=== PATIENT | male | born 1990 | race Caucasian/White ===

== ENCOUNTER 2017-10-01 23:47 | Emergency (ER) | payer OTHER ==
[~2017-10-01] VITALS: Ht 185.4 cm; Wt 81.6 kg
[2017-10-02] MEDS ORDERED: ATARAX25 MG ORAL (00:10)
[2017-10-02] MEDS ORDERED: PAXIL CR25 MG ORAL (00:10)
[2017-10-02 00:11] VITALS: BP 152/71
[2017-10-02 00:24] VITALS: BP 152/71
--- NOTE | 2017-10-02 01:19 | Emergency Room Report ---
History of Present Illness General Chief Complaint: Medication Refill Source: Patient Present Illness HPI 27-year-old male here for medication refill, states that he ran out of his Paxil and has hydroxyzine for anxiety. No SI or HI. No other complaints Allergies: Coded Allergies: ACETAMINOPHEN (Verified Allergy, Unknown, 10/01/17) HYDROCODONE (Verified Allergy, Unknown, 10/01/17) PENICILLINS (Verified Allergy, Unknown, 10/01/17) Patient History Past Medical History: see triage record Past Surgical History: none Pertinent Family History: none Reviewed Nursing Documentation: PMH: Agreed; PSxH: Agreed Nursing Documentation-PMH History Of Psychiatric Problem: Yes - DEPRESSION,ANXIETY Review of Systems All Other Systems: negative except mentioned in HPI Physical Exam Vital Signs Date Time Temp Pulse Resp B/P (MAP) Pulse Ox O2 Delivery O2 Flow Rate FiO2 10/01/17 23:56 98.1 118 16 152/71 96 Room Air 98.1 Sp02 EP Interpretation: reviewed, normal General Appearance: normal inspection, well appearing, no apparent distress, alert, GCS 15, non-toxic Head: normocephalic, atraumatic Eyes: bilateral eye normal inspection, bilateral eye PERRL, bilateral eye EOMI ENT: normal ENT inspection, normal pharynx, normal voice, moist mucus membranes Neck: normal inspection, full range of motion, supple Respiratory: normal inspection, lungs clear, normal breath sounds, no respiratory distress, no retraction, no wheezing, speaking full sentences, chest symmetrical Cardiovascular #1: normal inspection, regular rate, rhythm, no edema, normal capillary refill Cardiovascular #2: 2+ radial (R), 2+ radial (L) Gastrointestinal: normal inspection, non tender, soft, non-distended, no guarding Genitourinary: no CVA tenderness Musculoskeletal: normal inspection, back normal, normal range of motion, non- tender Neurologic: normal inspection, alert, oriented x3, responsive, motor strength/ tone normal, sensory intact, normal gait, speech normal Psychiatric: normal inspection, judgement/insight normal, memory normal Skin: normal inspection, normal color, no rash, warm/dry, well hydrated, normal turgor Medical Decision Making Diagnostic Impression: Primary Impression: Encounter for medication refill ER Course 27-year-old male here for medication refill Paxil Hydroxyzine DDX: Medication refill Plan: None ER course: Patient has remained stable during ED stay. Disposition: Patient is to be discharged to home. Please note that this Emergency Department Report was dictated using [employer] technology software, occasionally this can lead to erroneous entry secondary to interpretation by the dictation equipment Last Vital Signs Date Time Temp Pulse Resp B/P (MAP) Pulse Ox O2 Delivery O2 Flow Rate FiO2 10/02/17 00:24 98.1 116 16 152/71 96 Room Air 98.1 Disposition: HOME, SELF-CARE Condition: Improved Scripts Paroxetine Hcl (PAXIL CR) 25 Mg Tab.er.24h 25 MG ORAL QHS, #7 TAB 0 Refills Prov: Mitzi Agee M.D. 10/02/17 Hydroxyzine HCl (Hydroxyzine HCl) 25 Mg Tablet 50 MG ORAL BID, #30 TAB Prov: Mitzi Agee M.D. 10/02/17 Referrals: [facility],REFERRING (PCP) Patient Instructions: Medicine Refill at the Emergency Department Mitzi Agee M.D. Oct 02, 2017 01:19
== END 2017-10-02 00:37 | disposition home or self-care (01) ==
LOC: EMR 10-02 00:05
DX: F41.9 Anxiety disorder, unspecified (principal); F32.9 Major depressive disorder, single episode, unspecified; Z76.0 Encounter for issue of repeat prescription; Z88.0 Allergy status to penicillin; Z88.6 Allergy status to analgesic agent
CPT/HCPCS: 99283

== ENCOUNTER 2018-08-26 15:17 | Emergency (ER) | payer MEDICAID, OTHER ==
[~2018-08-26] VITALS: Ht 180.3 cm; Wt 81.6 kg
[~2018-08-26 15:17] MED LIST: ATARAX25 MG ORAL; PAXIL CR25 MG ORAL
--- NOTE | 2018-08-26 15:34 | Emergency Room Report ---
History of Present Illness General Chief Complaint: Behavioral Complaint Source: Patient Present Illness HPI 28-year-old male patient presents the ER placed on 5150 hold by police for danger to others. Police report that he was trying to be seen by physicians at [facility] earlier today when he became violent towards the security staff, states they were called by police and they were taking him to the police station for incarceration however there was no neck evaluated here so they were told to bring him to the nearest hospital. Patient currently denies any suicidal or homicidal ideation. States that he has a history of bipolar disease , states that he is taking Abilify. States that he is also taking prescribed methamphetamines, states that he is taking Adderall. Denies acute complaints. Denies fever, chest pain, shortness of breath, abdominal pain. Reports that he is able to read others thoughts and minds. Denies hearing voices. Denies thoughts of hurting herself. Denies other aggravating or relieving factors. Allergies: Coded Allergies: ACETAMINOPHEN (Verified Allergy, Unknown, 10/01/17) HYDROCODONE (Verified Allergy, Unknown, 10/01/17) PENICILLINS (Verified Allergy, Unknown, 10/01/17) Patient History Past Medical History: see triage record Reviewed Nursing Documentation: PMH: Agreed; PSxH: Agreed Nursing Documentation-PMH Past Medical History: No Stated History Review of Systems All Other Systems: negative except mentioned in HPI Physical Exam Vital Signs Date Time Temp Pulse Resp B/P (MAP) Pulse Ox O2 Delivery O2 Flow Rate FiO2 08/26/18 15:23 99.7 115 18 149/86 95 Room Air Sp02 EP Interpretation: reviewed, normal General Appearance: well appearing, no apparent distress, alert, GCS 15, non- toxic Head: normocephalic, atraumatic Eyes: bilateral eye normal inspection, bilateral eye PERRL ENT: hearing grossly normal, normal pharynx, no angioedema, normal voice, uvula midline, moist mucus membranes Neck: full range of motion, no meningismus Respiratory: lungs clear, normal breath sounds, no rhonchi, no respiratory distress, no accessory muscle use, no wheezing, speaking full sentences Cardiovascular #1: regular rate, rhythm, no edema Gastrointestinal: non tender, soft, no mass, non-distended, no guarding, no rebound Musculoskeletal: back normal, digits/nails normal, gait/station normal, normal range of motion, non-tender Neurologic: alert, oriented x3, responsive, motor strength/tone normal, sensory intact Psychiatric: mood/affect normal, no suicidal/homicidal ideation Skin: no rash Medical Decision Making PA Attestation Dr. Martinez is my supervising Physician whom patient management has been discussed with. Diagnostic Impression: Primary Impression: Behavioral disorder ER Course Pt. presents to the ED c/o reading people's minds, history of bipolar disease, on 5150 hold for danger to others. Ddx considered but are not limited to anxiety, depression, drug use, alcohol use , behavioral disorder. Vital signs: are WNL, pt. is afebrile Ordered labs, urine drug screen, serum alcohol. ER COURSE: CBC and CMP unremarkable, mild elevation WBC likely due to agitation or amphetamine use, patient afebrile, low suspicion for infection. No elevation in LFTs or electrolytes. Urine drug screen positive for amphetamines and marijuana, remainder of drug screen negative. Provided with medication in the ER, patient appearing agitated. Believe patient requires chemical sedation at this time. Patient medically cleared. Patient resting comfortably no acute distress, nontoxic appearing. Patient be transferred to mental health facility. Patient signed out to Dr. Saucedo. - Please note that this Emergency Department Report was dictated using [employer] technology software, occasionally this can lead to erroneous entry secondary to interpretation by the dictation equipment. [facility] Test 08/26/18 15:53 08/26/18 18:25 White Blood Count 12.1 K/UL (4.8-10.8) Red Blood Count 4.33 M/UL (4.70-6.10) Hemoglobin 12.9 G/DL (14.2-18.0) Hematocrit 39.0 % (42.0-52.0) Mean Corpuscular Volume 90 FL (80-99) Mean Corpuscular Hemoglobin 29.9 PG (27.0-31.0) Mean Corpuscular Hemoglobin Concent 33.2 G/DL (32.0-36.0) Red Cell Distribution Width 11.3 % (11.6-14.8) Platelet Count 295 K/UL (150-450) Mean Platelet Volume 5.2 FL (6.5-10.1) Neutrophils (%) (Auto) 70.9 % (45.0-75.0) Lymphocytes (%) (Auto) 19.5 % (20.0-45.0) Monocytes (%) (Auto) 8.4 % (1.0-10.0) Eosinophils (%) (Auto) 0.2 % (0.0-3.0) Basophils (%) (Auto) 0.9 % (0.0-2.0) Sodium Level 141 MMOL/L (136-145) Potassium Level 3.8 MMOL/L (3.5-5.1) Chloride Level 105 MMOL/L (98-107) Carbon Dioxide Level 27 MMOL/L (21-32) Anion Gap 9 mmol/L (5-15) Blood Urea Nitrogen 16 mg/dL (7-18) Creatinine 1.4 MG/DL (0.55-1.30) Estimat Glomerular Filtration Rate > 60 mL/min (>60) Glucose Level 89 MG/DL (74-106) Calcium Level 9.6 MG/DL (8.5-10.1) Total Bilirubin 0.6 MG/DL (0.2-1.0) Aspartate Amino Transf (AST/SGOT) 19 U/L (15-37) Alanine Aminotransferase (ALT/SGPT) 24 U/L (12-78) Alkaline Phosphatase 31 U/L (46-116) Total Protein 7.6 G/DL (6.4-8.2) Albumin 4.2 G/DL (3.4-5.0) Globulin 3.4 g/dL Albumin/Globulin Ratio 1.2 (1.0-2.7) Salicylates Level 1.6 ug/mL (2.8-20) Acetaminophen Level < 2 MCG/ML (10-30) Serum Alcohol < 3 mg/dL Urine Opiates Screen Negative (NEGATIVE) Urine Barbiturates Screen Negative (NEGATIVE) Phencyclidine (PCP) Screen Negative (NEGATIVE) Urine Amphetamines Screen Positive (NEGATIVE) Urine Benzodiazepines Screen Negative (NEGATIVE) Urine Cocaine Screen Negative (NEGATIVE) Urine Marijuana (THC) Screen Positive (NEGATIVE) Last Vital Signs Date Time Temp Pulse Resp B/P (MAP) Pulse Ox O2 Delivery O2 Flow Rate FiO2 08/26/18 15:23 99.7 115 18 149/86 95 Room Air Disposition: XFER TO PSYCH HOSP/UNIT Condition: Serious Rico Suero Aug 26, 2018 15:34
--- NOTE | 2018-08-26 15:55 | NUR ---
ED Nurse Note: Patients belongings placed in lockers 1 and 2
[2018-08-26 16:08] VITALS: BP 149/86
--- NOTE | 2018-08-26 16:12 | NUR ---
ED Nurse Note:pt. was BIBA from the street for screaming and inapropriate behaivior and placed on 51/50 hold by [employer] for psych evaluation, seen by ER PA, blood sent to labs, IV fluids started
[2018-08-26 16:19] LABS: BASOPHILS % (AUTO) 0.9 % (0.0-2.0); EOSINOPHILS % (AUTO) 0.2 % (0.0-3.0); HEMOGLOBIN 12.9 G/DL (14.2-18.0); LYMPHOCYTES % (AUTO) 19.5 % (20.0-45.0); MEAN CORPUSCULAR VOLUME 90 FL (80-99); MONOCYTES % (AUTO) 8.4 % (1.0-10.0); NEUTROPHILS % (AUTO) 70.9 % (45.0-75.0); PLATELET COUNT 295 K/UL (150-450); RED BLOOD COUNT 4.33 M/UL (4.70-6.10); RED CELL DISTRIBUTION WIDTH 11.3 % (11.6-14.8); WHITE BLOOD COUNT 12.1 K/UL (4.8-10.8)
[2018-08-26 16:38] LABS: ANION GAP 9 mmol/L (5-15); BLOOD UREA NITROGEN 16 mg/dL (7-18); CALCIUM 9.6 MG/DL (8.5-10.1); CARBON DIOXIDE 27 MMOL/L (21-32); CHLORIDE 105 MMOL/L (98-107); CREATININE 1.4 MG/DL (0.55-1.30); POTASSIUM 3.8 MMOL/L (3.5-5.1); SODIUM 141 MMOL/L (136-145)
[2018-08-26 16:42] LABS: ALANINE AMINOTRANSFERASE 24 U/L (12-78); ALBUMIN 4.2 G/DL (3.4-5.0); ALBUMIN/GLOBULIN RATIO 1.2 (1.0-2.7); ALKALINE PHOSPHATASE 31 U/L (46-116); ASPARTATE AMINO TRANSFERASE 19 U/L (15-37); BILIRUBIN,TOTAL 0.6 MG/DL (0.2-1.0)
[2018-08-26] MEDS ORDERED: DiphenhydrAMINE 50mg/ml Inj IM ONE (18:15)
[2018-08-26] MEDS ORDERED: Haloperidol 5mg/ml Inj IM ONE (18:15)
[2018-08-26] MEDS ORDERED: LORazepam Inj 2mg/ml 1ml IM ONE (18:15)
--- NOTE | 2018-08-26 18:30 | NUR ---
ED Nurse Note:pt. got agitated- was given IM ativan with haldol, sitter is at bed side
--- NOTE | 2018-08-26 19:32 | NUR ---
ED Nurse Note:pt. is sleeping no signs of distress noted
--- NOTE | 2018-08-26 19:54 | NUR ---
ED Nurse Note: Sitter is at bedside.
[2018-08-26 19:55] VITALS: BP 136/79
--- NOTE | 2018-08-26 21:49 | NUR ---
ED Nurse Note: Patient is sleeping on gurney. Breathing is even and unlabored. No s/s of acute distress noted at this time. Sitter is at bedside.
[2018-08-26 23:44] VITALS: BP 131/77
--- NOTE | 2018-08-27 02:16 | NUR ---
ED Nurse Note: Patient is sleeping on gurney. Breathing is even and unlabored. No s/s of acute distress noted at this time. Sitter is at bedside.
[2018-08-27 03:51] VITALS: BP 136/82
--- NOTE | 2018-08-27 03:51 | NUR ---
ED Nurse Note: Patient is sleeping on gurney. Breathing is even and unlabored. No s/s of acute distress noted at this time. Sitter is at bedside.
[2018-08-27 07:13] VITALS: BP 115/68
--- NOTE | 2018-08-27 07:13 | NUR ---
ED Nurse Note: REPORT RECEIVED FROM BUSTER AYALA. PT SLEEPING PEACEFULLY IN BED IN NAD. SITTER AT BEDSIDE. VSS.
--- NOTE | 2018-08-27 07:15 | NUR ---
ED Nurse Note: IV LINE CHARTED BUT PT HAS NO IV ON ASSESSMENT. PER LUCY RN, PT PULLED IV OUT DURING METALLURGICAL ANALYST.
--- NOTE | 2018-08-27 07:35 | NUR ---
ED Nurse Note: PT AWAKE. AOX4. WATER AND JUICE PROVIDED FOR PT. BREAKFAST TRAY ORDERED. PT WAS PICKED UP FROM STREET BY EMS. PT ASKED IF HE IS HOMELESS. PT DENIES HE IS HOMELESS AND STATES HE LIVES AT HOME.
--- NOTE | 2018-08-27 07:42 | NUR ---
ED Nurse Note: BREAKFAST TRAY PROVIDED TO PT. NEW SITTER AT BEDSIDE.
--- NOTE | 2018-08-27 11:13 | NUR ---
ED Nurse Note: REPORT GIVEN TO BUSTER GOVEA.
[2018-08-27] MEDS ORDERED: Haloperidol 5mg/ml Inj IM ONE (11:15)
[2018-08-27] MEDS ORDERED: DiphenhydrAMINE 50mg/ml Inj IM ONE (11:15)
[2018-08-27] MEDS ORDERED: LORazepam Inj 2mg/ml 1ml IM ONE (11:15)
--- NOTE | 2018-08-27 12:03 | NUR ---
ED Nurse Note: report given to Mee at [facility]. Ambulance at the bedside, all belongings left w/ pt. pt vss. airway intact, resp even and unlabored.
[2018-08-27 12:13] VITALS: BP 116/68
--- NOTE | 2018-08-27 12:13 | NUR ---
ED Nurse Note: Per RN Gato, pt pulled iv out last night, no iv site found.
== END 2018-08-27 13:13 ==
LOC: EMR 16:00
DX: F91.9 Conduct disorder, unspecified (principal); Z88.6 Allergy status to analgesic agent; Z88.0 Allergy status to penicillin; Z88.5 Allergy status to narcotic agent
CPT/HCPCS: 36415; 80053; 80307; 80329; 85025; 96360; 96372; 99285; J1200; J1630

== ENCOUNTER 2019-01-13 10:14 | Emergency (ER) | payer MEDICAID ==
[~2019-01-13] VITALS: Ht 182.9 cm; Wt 81.6 kg
--- NOTE | 2019-01-13 10:08 | NUR ---
ED Nurse Note: pt biba ra [id number] and [employer] officer T[place] serial #[id number] unit [id number] . pt was running in traffic throwing things at kids and people pt is rambling and appears to be under the influence. unknown hx and unknonw meds.
[2019-01-13 10:11] VITALS: BP 130/70
[2019-01-13] MEDS ORDERED: Haloperidol 5mg/ml Inj IM ONE (10:30)
[2019-01-13] MEDS ORDERED: LORazepam Inj 2mg/ml 1ml IV ONE (10:30)
--- NOTE | 2019-01-13 10:44 | NUR ---
ED Nurse Note: unable to draw labs pt unsteady waiting for him to calm down ermd aware.
[2019-01-13 11:22] LABS: BASOPHILS % (AUTO) 1.1 % (0.0-2.0); EOSINOPHILS % (AUTO) 0.3 % (0.0-3.0); HEMATOCRIT 39.1 % (42.0-52.0); HEMOGLOBIN 12.7 G/DL (14.2-18.0); LYMPHOCYTES % (AUTO) 27.6 % (20.0-45.0); MEAN CORPUSCULAR VOLUME 90 FL (80-99); MONOCYTES % (AUTO) 8.6 % (1.0-10.0); NEUTROPHILS % (AUTO) 62.5 % (45.0-75.0); PLATELET COUNT 312 K/UL (150-450); RED BLOOD COUNT 4.32 M/UL (4.70-6.10); RED CELL DISTRIBUTION WIDTH 11.7 % (11.6-14.8); WHITE BLOOD COUNT 7.9 K/UL (4.8-10.8)
[2019-01-13 11:28] LABS: ANION GAP 10 mmol/L (5-15); BLOOD UREA NITROGEN 15 mg/dL (7-18); CALCIUM 8.5 MG/DL (8.5-10.1); CARBON DIOXIDE 24 MMOL/L (21-32); CHLORIDE 104 MMOL/L (98-107); CREATININE 1.2 MG/DL (0.55-1.30); POTASSIUM 3.5 MMOL/L (3.5-5.1); SODIUM 138 MMOL/L (136-145)
[2019-01-13 11:34] LABS: ALANINE AMINOTRANSFERASE 20 U/L (12-78); ALBUMIN/GLOBULIN RATIO 1.3 (1.0-2.7); ALKALINE PHOSPHATASE 31 U/L (46-116); ASPARTATE AMINO TRANSFERASE 27 U/L (15-37); BILIRUBIN,TOTAL 0.5 MG/DL (0.2-1.0)
[2019-01-13 12:38] VITALS: BP 120/56
[2019-01-13 12:40] VITALS: BP 120/56
--- NOTE | 2019-01-13 12:43 | NUR ---
ED Nurse Note: bed in low locked position pt on monitor sleeping in green gown . all belongings placed in locker #3 vss kathleen monitor . pt + for thc and meth.
--- NOTE | 2019-01-13 14:38 | Emergency Room Report ---
History of Present Illness General Chief Complaint: Behavioral Complaint Source: Patient, EMS (Sandra Sim DO) Present Illness HPI Patient presents by police department and paramedics Patient presents acutely agitated Yelling and cursing History of present illness is not able to be obtained Patient physically threatening the police and the staff He denies any chest pain or shortness of breath (Sandra Sim DO) HPI 28-year-old male 5150 by police, initially agitated, worsened by drugs, alleviated by not taking drugs, patient has no pain (Oneal Plaza M.D.) Allergies: Coded Allergies: ACETAMINOPHEN (Verified Allergy, Unknown, 10/01/17) HYDROCODONE (Verified Allergy, Unknown, 10/01/17) PENICILLINS (Verified Allergy, Unknown, 10/01/17) Patient History Limited by: medical condition Past Medical History: see triage record Reviewed Nursing Documentation: PMH: Agreed; PSxH: Agreed (Sandra Sim DO) Past Medical History: see triage record Reviewed Nursing Documentation: PMH: Agreed; PSxH: Agreed (Oneal Plaza M.D.) Nursing Documentation-PMH Past Medical History Deferred: Pt Cognitively Impaired (Sandra Sim DO) Review of Systems All Other Systems: limited - Other than the ones mentioned in the history of present illness all others are reviewed however they do stay limited due to the patient's mental status (Sandra Sim DO) Physical Exam Vital Signs Date Time Temp Pulse Resp B/P (MAP) Pulse Ox O2 Delivery O2 Flow Rate FiO2 01/13/19 10:04 97.9 120 20 130/70 (90) 99 Room Air Sp02 EP Interpretation: reviewed, normal General Appearance: moderate distress - Agitated cursing verbally abusive Head: normocephalic, atraumatic Eyes: bilateral eye PERRL, bilateral eye EOMI ENT: normal pharynx Neck: supple Respiratory: lungs clear, no respiratory distress, no retraction Cardiovascular #1: regular rate, rhythm Gastrointestinal: non tender, soft Musculoskeletal: normal inspection Neurologic: alert, responsive Skin: no rash Lymphatic: no adenopathy (Sandra Sim DO) Sp02 EP Interpretation: reviewed, normal General Appearance: well appearing, no apparent distress, alert Head: normocephalic, atraumatic Eyes: bilateral eye PERRL, bilateral eye EOMI ENT: uvula midline, moist mucus membranes Neck: supple, thyroid normal, supple/symm/no masses Respiratory: lungs clear, no respiratory distress, no retraction, no accessory muscle use Cardiovascular #1: normal peripheral pulses, regular rate, rhythm, no edema, no gallop, no murmur Gastrointestinal: non tender, soft, no guarding, no rebound Musculoskeletal: normal inspection Neurologic: alert, oriented x3 Psychiatric: mood/affect normal Skin: no rash, warm/dry (Oneal Plaza M.D.) Medical Decision Making Diagnostic Impression: Primary Impression: Behavioral change Additional Impressions: Amphetamine abuse Acute psychosis ER Course Upon initial arrival patient required chemical sedation given his destructive behavior Patient has extensive studies initiated showing positive amphetamine After initial chemical sedation patient has rested comfortably he will require repeat evaluation Prior to final disposition Labs Test 01/13/19 11:00 White Blood Count 7.9 K/UL (4.8-10.8) Red Blood Count 4.32 M/UL (4.70-6.10) Hemoglobin 12.7 G/DL (14.2-18.0) Hematocrit 39.1 % (42.0-52.0) Mean Corpuscular Volume 90 FL (80-99) Mean Corpuscular Hemoglobin 29.4 PG (27.0-31.0) Mean Corpuscular Hemoglobin Concent 32.6 G/DL (32.0-36.0) Red Cell Distribution Width 11.7 % (11.6-14.8) Platelet Count 312 K/UL (150-450) Mean Platelet Volume 5.4 FL (6.5-10.1) Neutrophils (%) (Auto) 62.5 % (45.0-75.0) Lymphocytes (%) (Auto) 27.6 % (20.0-45.0) Monocytes (%) (Auto) 8.6 % (1.0-10.0) Eosinophils (%) (Auto) 0.3 % (0.0-3.0) Basophils (%) (Auto) 1.1 % (0.0-2.0) Sodium Level 138 MMOL/L (136-145) Potassium Level 3.5 MMOL/L (3.5-5.1) Chloride Level 104 MMOL/L (98-107) Carbon Dioxide Level 24 MMOL/L (21-32) Anion Gap 10 mmol/L (5-15) Blood Urea Nitrogen 15 mg/dL (7-18) Creatinine 1.2 MG/DL (0.55-1.30) Estimat Glomerular Filtration Rate > 60 mL/min (>60) Glucose Level 100 MG/DL (74-106) Calcium Level 8.5 MG/DL (8.5-10.1) Total Bilirubin 0.5 MG/DL (0.2-1.0) Aspartate Amino Transf (AST/SGOT) 27 U/L (15-37) Alanine Aminotransferase (ALT/SGPT) 20 U/L (12-78) Alkaline Phosphatase 31 U/L (46-116) Total Protein 7.0 G/DL (6.4-8.2) Albumin 4.0 G/DL (3.4-5.0) Globulin 3.0 g/dL Albumin/Globulin Ratio 1.3 (1.0-2.7) Salicylates Level 4.1 ug/mL (2.8-20) Urine Opiates Screen Negative (NEGATIVE) Acetaminophen Level < 2 MCG/ML (10-30) Urine Barbiturates Screen Negative (NEGATIVE) Phencyclidine (PCP) Screen Negative (NEGATIVE) Urine Amphetamines Screen Positive (NEGATIVE) Urine Benzodiazepines Screen Negative (NEGATIVE) Urine Cocaine Screen Negative (NEGATIVE) Urine Marijuana (THC) Screen Positive (NEGATIVE) Serum Alcohol < 3 mg/dL (Sandra Sim DO) ER Course Patient has been sleeping comfortably in bed the entire time, in no acute distress, patient is medically cleared for psychiatric facility, he is currently under 5150 Laboratory Tests Test 01/13/19 11:00 White Blood Count 7.9 K/UL (4.8-10.8) Red Blood Count 4.32 M/UL (4.70-6.10) L Hemoglobin 12.7 G/DL (14.2-18.0) L Hematocrit 39.1 % (42.0-52.0) L Mean Corpuscular Volume 90 FL (80-99) Mean Corpuscular Hemoglobin 29.4 PG (27.0-31.0) Mean Corpuscular Hemoglobin Concent 32.6 G/DL (32.0-36.0) Red Cell Distribution Width 11.7 % (11.6-14.8) Platelet Count 312 K/UL (150-450) Mean Platelet Volume 5.4 FL (6.5-10.1) L Neutrophils (%) (Auto) 62.5 % (45.0-75.0) Lymphocytes (%) (Auto) 27.6 % (20.0-45.0) Monocytes (%) (Auto) 8.6 % (1.0-10.0) Eosinophils (%) (Auto) 0.3 % (0.0-3.0) Basophils (%) (Auto) 1.1 % (0.0-2.0) Sodium Level 138 MMOL/L (136-145) Potassium Level 3.5 MMOL/L (3.5-5.1) Chloride Level 104 MMOL/L (98-107) Carbon Dioxide Level 24 MMOL/L (21-32) Anion Gap 10 mmol/L (5-15) Blood Urea Nitrogen 15 mg/dL (7-18) Creatinine 1.2 MG/DL (0.55-1.30) Estimate Glomerular Filtration Rate > 60 mL/min (>60) Glucose Level 100 MG/DL (74-106) Calcium Level 8.5 MG/DL (8.5-10.1) Total Bilirubin 0.5 MG/DL (0.2-1.0) Aspartate Amino Transferase (AST) 27 U/L (15-37) Alanine Aminotransferase (ALT) 20 U/L (12-78) Alkaline Phosphatase 31 U/L (46-116) L Total Protein 7.0 G/DL (6.4-8.2) Albumin 4.0 G/DL (3.4-5.0) Globulin 3.0 g/dL Albumin/Globulin Ratio 1.3 (1.0-2.7) Salicylates Level 4.1 ug/mL (2.8-20) Urine Opiates Screen Negative (NEGATIVE) Acetaminophen Level < 2 MCG/ML (10-30) L Urine Barbiturates Screen Negative (NEGATIVE) Phencyclidine (PCP) Screen Negative (NEGATIVE) Urine Amphetamines Screen Positive (NEGATIVE) H Urine Benzodiazepines Screen Negative (NEGATIVE) Urine Cocaine Screen Negative (NEGATIVE) Urine Marijuana (THC) Screen Positive (NEGATIVE) H Serum Alcohol < 3 mg/dL (Oneal Plaza M.D.) ER Course Patient signed out to me. He presents as 5150 for acute psychosis secondary to drug abuse. He was medically cleared. He will be transferred to [facility] in [place]. He was agitated when ambulance got here. He was given Haldol and Benadryl. (Damaso Guerrero MD) Last Vital Signs Date Time Temp Pulse Resp B/P (MAP) Pulse Ox O2 Delivery O2 Flow Rate FiO2 01/13/19 12:40 97.9 14 120/56 98 Room Air 01/13/19 12:38 89 (Sandra Sim DO) Reevaluation Time: 16:50 Status: improved Reevaluation Impression Patient medically cleared Resting comfortably in bed, (Oneal Plaza M.D.) Status: improved (Damaso Guerrero MD) Disposition: XFER TO PSYCH HOSP/UNIT Condition: Improved Referrals: [facility],REFERRING (PCP) Sandra Sim DO Jan 13, 2019 14:37 Oneal Plaza M.D. Jan 13, 2019 16:50 Damaso Guerrero MD Jan 14, 2019 00:52
--- NOTE | 2019-01-13 15:15 | NUR ---
ED Nurse Note: pt care assummed. pt to tx1 for further observation. remains sleeping with even regular respirations.
[2019-01-13 17:30] VITALS: BP 100/56
--- NOTE | 2019-01-13 17:30 | NUR ---
ED Nurse Note: pt awakens to loud verbal stimuli. states year correctly and name. remains cooperative with vs obtainment. pt then falls immediately back to sleep after speaking with rn.
--- NOTE | 2019-01-13 19:00 | NUR ---
ED Nurse Note: report to brendan knight pt is on 5150 hold and pt status while in ed
--- NOTE | 2019-01-13 21:35 | NUR ---
ED Nurse Note: patient at no distress at this time
[2019-01-13 22:37] VITALS: BP 137/60
[2019-01-14 00:24] VITALS: BP 141/52
[2019-01-14 00:38] VITALS: BP 126/59
[2019-01-14] MEDS ORDERED: DiphenhydrAMINE 50mg/ml Inj ONE (00:51)
[2019-01-14] MEDS ORDERED: Haloperidol 5mg/ml Inj ONE (00:51)
--- NOTE | 2019-01-14 00:55 | NUR ---
ED Nurse Note: Patient began being aggressive with transport staff, repeatedly jumped over bed and knocked a hole on the wall. Dr. Guerrero informed.
--- NOTE | 2019-01-14 00:57 | NUR ---
ED Nurse Note: Received orders for haldol and benadryl
[2019-01-14] MEDS ORDERED: Haloperidol 5mg/ml Inj IM ONE (01:00)
[2019-01-14] MEDS ORDERED: DiphenhydrAMINE 50mg/ml Inj IM ONE (01:00)
--- NOTE | 2019-01-14 01:05 | NUR ---
ED Nurse Note: Patient transferred to [facility]. at time of departure, patient is still agitated somewhat however is more calm. patient is taken by ambulance personnel.
--- NOTE | 2019-01-14 09:03 | NUR ---
ED Nurse Note: Spoke to Pablo, charge nurse at [facility] and informed that patient's belongings found and placed in safe.
== END 2019-01-14 01:10 ==
LOC: EDBD 10:14 → EMR 10:46
DX: F91.9 Conduct disorder, unspecified (principal); F15.10 Other stimulant abuse, uncomplicated; F23 Brief psychotic disorder; Z88.6 Allergy status to analgesic agent; Z88.0 Allergy status to penicillin; Z88.5 Allergy status to narcotic agent
CPT/HCPCS: 36415; 80053; 80307; 80329; 85025; 96372; 96374; 99285; J1200; J1630

== ENCOUNTER 2019-05-22 09:53 | Emergency (ER) | payer MEDICAID ==
[~2019-05-22] VITALS: Ht 182.9 cm; Wt 77.1 kg
[2019-05-22] MEDS ORDERED: HYDROXYZINE PA100 MG ORAL (10:18)
[2019-05-22] MEDS ORDERED: PAROXETINE HCL20 MG PO (10:18)
[2019-05-22] MEDS ORDERED: ABILIFY20 MG ORAL ×2 (10:18→11:06)
[2019-05-22] MEDS ORDERED: ADDERALL XR 3030 MG ORAL (10:18)
[2019-05-22] MEDS ORDERED: LATUDA20 MG PO ×2 (10:18→11:06)
[2019-05-22 10:25] VITALS: BP 128/70
--- NOTE | 2019-05-22 11:13 | Emergency Room Report ---
History of Present Illness General Chief Complaint: Medication Refill Source: Patient Present Illness HPI Patient is a 28-year-old male presents for medication refill. Patient had reportedly had prior history of bipolar. He reports having recently used meth. He states that he had run out of his psychiatric medications which included Latuda, Abilify, Adderall XR, among others. Patient is requesting refills of Adderall XR. He states he was at mental health yesterday and did not get his prescriptions. Patient denies any other complaints other than feeling somewhat dehydrated. He states he has not been drinking as much water. He reports having normal urine output. Denies any fever. Allergies: Coded Allergies: ACETAMINOPHEN (Verified Allergy, Unknown, 10/01/17) HYDROCODONE (Verified Allergy, Unknown, 10/01/17) PENICILLINS (Verified Allergy, Unknown, 10/01/17) Patient History Past Medical History: see triage record Reviewed Nursing Documentation: PMH: Agreed; PSxH: Agreed Nursing Documentation-PMH Past Medical History: No History, Except For Hx Cardiac Problems: No Hx Hypertension: No Hx Pacemaker: No Hx Asthma: No Hx COPD: No Hx Diabetes: No Hx Cancer: No Hx Gastrointestinal Problems: No Hx Dialysis: No History Of Psychiatric Problem: Yes - ADHD, depression, bipolar, anxiety Hx Neurological Problems: No Hx Cerebrovascular Accident: No Hx Seizures: No Review of Systems All Other Systems: negative except mentioned in HPI Physical Exam Vital Signs Date Time Temp Pulse Resp B/P (MAP) Pulse Ox O2 Delivery O2 Flow Rate FiO2 05/22/19 10:13 97.9 105 16 128/70 (89) 96 Room Air General Appearance: well appearing, no apparent distress, alert, GCS 15 Head: normocephalic, atraumatic ENT: hearing grossly normal, normal voice Neck: full range of motion, supple Respiratory: normal inspection, chest non-tender, lungs clear, no respiratory distress, speaking full sentences Cardiovascular #1: normal inspection Gastrointestinal: normal inspection Musculoskeletal: normal inspection, no calf tenderness Neurologic: alert, motor strength/tone normal, inserting machine operator III-XII nml as tested, EOM palsy, oriented, oriented x3, normal gait Psychiatric: mood/affect normal Skin: no rash Medical Decision Making Diagnostic Impression: Primary Impression: Medication refill ER Course Patient presented for medication refill. Differential diagnosis include was not limited to psychosis, bipolar disorder, substance abuse among others. Patient has a benign exam and does not appear to require any imaging or laboratory testing at this time. Patient appears to be under the influence of methamphetamine. He does not appear to be psychotic at this time. He has coherent speech but appears somewhat agitated. Patient was given medication prescriptions. patient was advised to follow-up with outpatient mental health.. Last Vital Signs Date Time Temp Pulse Resp B/P (MAP) Pulse Ox O2 Delivery O2 Flow Rate FiO2 05/22/19 10:25 97.9 105 16 128/70 96 Room Air Status: improved Disposition: HOME, SELF-CARE Condition: Stable Scripts Lurasidone Hcl (LATUDA) 20 Mg Tablet 20 MG PO DAILY, #14 TAB Prov: Christiano Ramachandran MD 05/22/19 Aripiprazole* (ABILIFY*) 20 Mg Tablet 20 MG ORAL DAILY, #14 TAB Prov: Christiano Ramachandran MD 05/22/19 Patient Instructions: Medicine Refill at the Emergency Department Additional Instructions: Follow up with mental health. Don't use meth. Return if any problems. Christiano Ramachandran MD May 22, 2019 11:13
[2019-05-22 11:20] VITALS: BP 121/71
== END 2019-05-22 11:22 | disposition home or self-care (01) ==
LOC: EMR 10:47
DX: Z76.0 Encounter for issue of repeat prescription (principal); F31.9 Bipolar disorder, unspecified; Z88.0 Allergy status to penicillin; F32.9 Major depressive disorder, single episode, unspecified; F41.9 Anxiety disorder, unspecified
CPT/HCPCS: 99282